=== PATIENT | male | born 1955 | race Hispanic/Latino ===

== ENCOUNTER 2017-12-06 10:52 | Observation (INO) | payer SELFPAY ==
[~2017-12-06] VITALS: Ht 170.2 cm; Wt 120.8 kg
--- OUTSIDE RECORDS SUMMARY | 2017-12-06 10:54 | XMS REPORT | Summary of Care ---
Author Author LEVI Arroyo, BANDAR Organization Unknown Address Unknown Phone Unavailable Care Team Providers Care Process Technician Name Role Phone ELIAS Arroyo, AKINPATRICKOYE Unavailable Unavailable LALY Arroyo, ABSALON Unavailable Unavailable OKWUOSA N.P., REINALDO Unavailable Unavailable NIMESH Arroyo, FADUMO Unavailable Unavailable KENDRA Arroyo, ALEJANDRO Unavailable Unavailable NED N.P., ALANA Unavailable Unavailable JUNE MARTINEZ, BAL Unavailable Unavailable LALY MCCRACKEN MD UT, ABSALON D Unavailable Unavailable OKWUOSA ANP UT, REINALDO Unavailable Unavailable Unavailable Unavailable Functional Status Name Dates Details Functional status health issues are not documented Status: Name Dates Details Cognitive status health issues are not documented Status: Problems Name Dates Details Abnormal renal finding (593.9, R39.9) Status: Active Acute pharyngitis (462, J02.9) Status: Active Acute tonsillitis (463, J03.90) Status: Active Acute bronchitis (466.0, J20.9) Status: Active Special Services Analysis Of Computerized Data Status: Active Obesity (278.00, E66.9) Status: Active Other hyperlipidemia (272.4, E78.49) Status: Active ROC (acute kidney injury) (584.9, N17.9) Status: Active CKD (chronic kidney disease) stage 3, GFR 30-59 ml/min (585.3, N18.3) Status: Active Uncontrolled hypertension (401.9, I10) Status: Active Uncontrolled type 2 diabetes mellitus with peripheral neuropathy (250.62, E11.42) Status: Active Neuropathy (355.9, G62.9) Status: Active Retinopathy, diabetic, bilateral (250.50, E11.319) Status: Active Medications Name Dates Details Lisinopril 20 MG Oral Tablet TAKE 1 TABLET DAILY. Quantity: 1 OKWUOSA N.P., REINALDO * Start : 19-Sep-2017 Active 30 Tablet Bottle Gabapentin 300 MG Oral Capsule TAKE 1 CAPSULE 3 TIMES DAILY. * Quantity: 180 Refills: 3 KENDRA Arroyo, ALEJANDRO * Start : 19-Sep-2017 Active NovoLOG Mix 70/30 FlexPen (70-30) 100 UNIT/ML Subcutaneous Suspension Pen-inject or INJECT 26 UNIT DAILY * Quantity: 1 Refills: 5 ALEJANDRO GARDNER M.D. * Start : 19-Sep-2017 Active 5 x 3 ML Pen Pen [place] 31G X 6 MM USE DIRECTED. * Quantity: 1 Refills: 5 ALEJANDRO GARDNER M.D. * Start : 19-Sep-2017 Active 100 Unit Box Accu-Chek Guide In Vitro Strip USE UP TO 4 STIPS DAILY DX CODE E11.65 * Quantity: 4 Refills: 0 OKWUOSA N.P., REINALDO * Start : 22-Sep-2017 Active 100 Strip Box Accu-Chek FastClix Lancets Use 3 Daily; E11.65 * Quantity: 3 Refills: 1 UMA RUFFIN M.D. * Start : 22-Sep-2017 Active 102 Unit Box Ltredbdgf-Iyktdnng-CZ 30-2-10 MG/5ML Oral Syrup TAKE 5 ML EVERY 4 TO 6 HOURS NEEDED. * Quantity: 240 Refills: 0 NED N.P., ALANA * Start : 21-Nov-2017 Active AmLODIPine Besylate 10 MG Oral Tablet TAKE 1 TABLET DAILY. * Quantity: 30 Refills: 2 FADUMO BEAVERS M.D. * Start : 21-Nov-2017 Active Azithromycin 250 MG Oral Tablet TAKE 2 TABLETS ON DAY 1 THEN TAKE 1 TABLET A DAY FOR 4 DAYS. * Quantity: 1 Refills: 0 NED N.P., ALANA * Start : 21-Nov-2017 Active 6 Tablet Box Metoprolol Tartrate 25 MG Oral Tablet TAKE 1 TABLET TWICE DAILY * Quantity: 60 Refills: 2 FADUMO BEAVERS M.D. * Start : 27-Nov-2017 Active Atorvastatin Calcium 20 MG Oral Tablet TAKE 1 TABLET AT BEDTIME. * Quantity: 30 Refills: 2 FADUMO BEAVERS M.D. * Start : 27-Nov-2017 Active Fish Oil 1000 MG Oral Capsule TAKE 1 CAPSULE TWICE DAILY * Quantity: 180 Refills: 2 FADUMO BEAVERS M.D. * Start : 27-Nov-2017 Active Allergies and Adverse Reactions Name Dates Details No Known Drug Allergies (Allergy) Status: Active Past Medical History Name Dates Details History of Diabetes (250.00, E11.9) Status: Resolved History of high cholesterol (V12.29, Z86.39) Status: Resolved History of hypertension (V12.59, Z86.79) Status: Resolved Procedures Procedure Dates Details [QL] MICROALBUMIN, RANDOM URINE (W/O CREATININE) Date: 13-Nov-2017 [QL] BASIC METABOLIC PANEL W/EGFR Date: 13-Nov-2017 [QLH] RENAL FUNCTION PANEL W/EGFR Date: 05-Dec-2017 Renal 01221 Date: 05-Dec-2017 [N] 2D Echo complete, with Doppler 78179 Date: 27-Nov-2017 History of No history of surgery Completed Immunization Name Dates Details Immunizations not documented Family History Name Dates Details Family history of high cholesterol (V18.19, Z83.42) Comments: Family History Status: Active Family history of stroke (V17.1, Z82.3) Comments: Family History Status: Active Family history of hypertension (V17.49, Z82.49) Comments: Family History Status: Active Name Dates Details Family history of malignant neoplasm of uterus (V16.49, Z80.49) Status: Active Name Dates Details Family history of Type 1 diabetes mellitus with other kidney complication (250.41, E10.29) Status: Active Social History Name Dates Details - Status: Name Dates Details Former smoker Vital Signs Date Test Result Details 64-Hju-12005:53 BP Systolic 127 mm[Hg] Status: BP Diastolic 74 mm[Hg] Status: Height 67 in Status: Weight 271 lb Status: Body Mass Index Calculated 42.45 kg/m2 Status: Body Surface Area Calculated 2.3 m2 Status: Heart Rate 79 /min Status: 27-Nov-20179:37 BP Systolic 189 mm[Hg] Status: Comments: Location: LUE; Position: Sitting BP Diastolic 84 mm[Hg] Status: Comments: Location: LUE; Position: Sitting Height 67 in Status: Weight 260.5 lb Status: Body Mass Index Calculated 40.8 kg/m2 Status: Body Surface Area Calculated 2.26 m2 Status: Heart Rate 90 /min Status: Comments: Location: L Brachial Artery; Temperature 97.9 f Status: Comments: Method: Tympanic Respiration Rate 14 /min Status: Comments: Quality: Normal O2 SAT 100 % Status: Comments: Source: RA :31 BP Systolic 186 mm[Hg] Status: Comments: Location: LUE; Position: Sitting BP Diastolic 104 mm[Hg] Status: Comments: Location: LUE; Position: Sitting Heart Rate 85 /min Status: Comments: Location: L Brachial Artery; :21 BP Systolic 176 mm[Hg] Status: Comments: Location: LUE; Position: Sitting BP Diastolic 92 mm[Hg] Status: Comments: Location: LUE; Position: Sitting Height 67 in Status: Weight 261.125 lb Status: Body Mass Index Calculated 40.9 kg/m2 Status: Body Surface Area Calculated 2.26 m2 Status: Heart Rate 93 /min Status: Comments: Location: L Brachial Artery; Temperature 97.3 f Status: Comments: Method: Tympanic Respiration Rate 15 /min Status: Comments: Quality: Normal O2 SAT 99 % Status: Comments: Source: RA Results Date Description Value Details :24 Glucose (Point of Care In Office) Glucose POC Lifescan 93 [id number]-[id number]:33 [[facility]] BASIC METABOLIC PANEL W/EGFR Glucose Lvl 82 mg/dl Range: 70-99 Comments: Adult reference range values reflect the clinical guidelinesof the [place] [employer]. Blood Urea Nitrogen 44 mg/dl (Above high threshold) Range: 7-22 Creatinine Lvl 1.70 mg/dl (Above high threshold) Range: 0.50-1.40 Sodium Level 141 {mEq/l} Range: 135-145 Potassium Level 5.7 {mEq/l} (Above high threshold) Range: 3.5-5.1 Chloride Level 115 {mEq/l} (Above high threshold) Range: 95-109 Carbon Dioxide 22 {mEq/l} (Below low threshold) Range: 24-32 AGAP 9.7 {mEq/l} (Below low threshold) Range: 10.0-20.0 Calcium Level Total 8.4 mg/dl (Below low threshold) Range: 8.5-10.5 eGFR 42 {ML/MIN/1.7} Comments: The eGFR is calculated using the CKD-EPI formula. In most young, healthyindividuals the eGFR will be >90 mL/min/1.73m2. The eGFR declines with age. AneGFR of 60-89 may be normal in some populations, particularly the elderly, forwhom the CKD-EPI formula has not been extensively validated. Use of the eGFR isnot recommended in the following populations:Individuals with unstable creatinine concentrations, including patients and those with serious co-morbid conditions.Patients with extremes in muscle mass or diet.The data above are obtained from the National Kidney Disease Education Program(NKDEP) which additionally recommends that when the eGFR is used in patientswith extremes of body mass index for purposes of drug dosing, the eGFR shouldbe multiplied by the estimated BMI. [id number]:33 [[facility]] MICROALBUMIN, RANDOM URINE (W/CREATININE) Urine Microalbumin 2970.0 mg/L U Creatinine 59.70 mg/dl Comments: No established reference ranges. Urine Microalbuming Creatinine Ratio 4974.9 {MCG/MG_CRE} (Above high threshold) Range: <=30.0 0-Dyx-889999:33 [O] Streptococcus Test Rapid (In Office) Group A Strep Screen NEGATIVE (Normal) 5-Ckn-394431:17 [[facility]] BASIC METABOLIC PANEL W/EGFR Glucose Lvl 234 mg/dl (Above high threshold) Range: 70-99 Comments: Adult reference range values reflect the clinical guidelinesof the [place] [employer]. Blood Urea Nitrogen 41 mg/dl (Above high threshold) Range: 7-22 Creatinine Lvl 2.00 mg/dl (Above high threshold) Range: 0.50-1.40 Sodium Level 139 {mEq/l} Range: 135-145 Potassium Level 5.1 {mEq/l} Range: 3.5-5.1 Chloride Level 112 {mEq/l} (Above high threshold) Range: 95-109 Carbon Dioxide 23 {mEq/l} (Below low threshold) Range: 24-32 AGAP 9.1 {mEq/l} (Below low threshold) Range: 10.0-20.0 Calcium Level Total 9.3 mg/dl Range: 8.5-10.5 eGFR 34 {ML/MIN/1.7} Comments: The eGFR is calculated using the CKD-EPI formula. In most young, healthyindividuals the eGFR will be >90 mL/min/1.73m2. The eGFR declines with age. AneGFR of 60-89 may be normal in some populations, particularly the elderly, forwhom the CKD-EPI formula has not been extensively validated. Use of the eGFR isnot recommended in the following populations:Individuals with unstable creatinine concentrations, including patients and those with serious co-morbid conditions.Patients with extremes in muscle mass or diet.The data above are obtained from the National Kidney Disease Education Program(NKDEP) which additionally recommends that when the eGFR is used in patientswith extremes of body mass index for purposes of drug dosing, the eGFR shouldbe multiplied by the estimated BMI. Plan of Care Name Dates Details Planned Observations [QLH] RENAL FUNCTION PANEL W/EGFR On: 01-Jan-2018 Intent Planned Goals not documented Planned Encounters Appointment; TONY MCKEON M.D. On: 08-Dec-2017 8:30 Appointment; UMA RUFFIN M.D. On: 26-Dec-2017 14:30 Appointment; LAKSHMI BURNS R.N. On: 04-Jan-2018 13:00 Appointment; FADUMO BEAVERS M.D. On: 05-Jan-2018 9:00 Appointment; BASHIR GRIFFIN M.D. On: 16-Jan-2018 10:30 Interventions Provided Labs/Procedures/Imaging* [place] 97138; To Be Done: 05 Dec 2017 Instructions* Patient Specific Education Given; Done: 05 Dec 2017 Discussion/Summary* 62 yr old man with PMH of poorly controlled HTN, poorly controlled DM, diabetic retinopathy (s/p LASER) and neuropathy, obesity, HLD, ex-smoker, seen for the management and evaluation of recent rapid decline in renal function * 1- CKD stage 3 likely due to diabetic nephropathy * rapid increase in Cr * continue to hold ACEI due to rapid decline * possibly worsened by atherosclerotic disease * suspect volume depletion as well due to uncontrolled DM and polyuria * drink at least 3-4 L of water daily * 2- Uncontrolled DM: * HgbA1c >15% * keep endocrinology follow up * 3- HTN: * acceptable control * keep log and bring in with every visit * continue Amlodipine 10 mg daily, metoprolol 25 mg bid * RTC 1 month with renal panel and kidney ultrasound * . Instructions Name Dates Details Instructions not documented Encounters Appointment; ALANA MARINO NP Encounter Diagnosis: Problem not documented On: 14-Sep-2017 14:20 Appointment; UMA RUFFIN M.D. Encounter Diagnosis: Problem not documented On: 19-Sep-2017 14:00 Appointment; LAKSHMI BURNS R.N. Encounter Diagnosis: Problem not documented On: 02-Nov-2017 13:00 Appointment; RIENALDO ABBASI NP Encounter Diagnosis: Problem not documented On: 13-Nov-2017 9:00 Appointment; ALANA MARINO NP Encounter Diagnosis: Problem not documented On: 21-Nov-2017 11:00 Appointment; FADUMO BEAVERS M.D. Encounter Diagnosis: Problem not documented On: 27-Nov-2017 9:20 Appointment; BASHIR GRIFFIN M.D. Encounter Diagnosis: Problem not documented On: 05-Dec-2017 9:00
[2017-12-06 11:31] LABS: BASOPHILS % 0.3 % (0.0-1.0); EOSINOPHILS # (AUTO) 0.1 (0.0-0.4); EOSINOPHILS % 0.9 % (0.0-6.0); HEMATOCRIT 34.4 % (38.2-49.6); HEMOGLOBIN 11.3 g/dL (14.0-18.0); LYMPHOCYTES # (AUTO) 1.6 (1.0-3.2); LYMPHOCYTES % 15.3 % (18.0-39.1); MEAN CORPUSCULAR HEMOGLOBIN 28.9 pg (28-32); MEAN CORPUSCULAR HGB CONC 32.8 g/dL (31-35); MONOCYTES # (AUTO) 0.8 (0.2-0.8); MONOCYTES % 7.3 % (4.4-11.3); NEUTROPHILS # (AUTO) 8.1 (2.1-6.9); NEUTROPHILS % 75.8 % (38.7-80.0); PLATELET COUNT 153 x10e3/uL (140-360); RED BLOOD COUNT 3.91 x10e6/uL (4.3-5.7); RED CELL DISTRIBUTION WIDTH 13.6 % (11.7-14.4)
[2017-12-06 11:36] LABS: INR 0.89; PROTHROMBIN TIME 12.9 seconds (11.9-14.5)
[2017-12-06 11:37] LABS: PARTIAL THROMBOPLASTIN TIME 31.5 seconds (23.8-35.5)
[2017-12-06] MEDS ORDERED: ASPIRIN 81 MG CHEW TAB PO ONE ×2 (12:00→14:15)
[2017-12-06 12:26] LABS: ALANINE AMINOTRANSFERASE 20 IU/L (0-55); ALBUMIN/GLOBULIN RATIO 1.1 (0.8-2.0); ALKALINE PHOSPHATASE 123 IU/L (40-150); ANION GAP 14.1 mmol/L (8-16); BLOOD UREA NITROGEN 43 mg/dL (7-26); BUN/CREATININE RATIO 20 (6-25); CALCIUM 8.3 mg/dL (8.4-10.2); CARBON DIOXIDE 16 mmol/L (22-29); CHLORIDE 111 mmol/L (98-107); CREATINE KINASE 232 IU/L (30-200); CREATININE, SERUM 2.11 mg/dL (0.72-1.25); EST GLOMERULAR FILTRATION RATE 32 ML/MIN (60-); GLUCOSE 201 mg/dL (74-118); POTASSIUM 5.1 mmol/L (3.5-5.1); SODIUM 136 mmol/L (136-145)
--- NOTE | 2017-12-06 12:26 | Diagnostic Imaging Report ---
Examination: Single AP view of the chest. COMPARISON: None. INDICATION: Dizziness, shortness of breath, chest pain DISCUSSION: Lung volumes are low with vascular crowding in the bases and perihilar regions. No focal airspace consolidation, pleural effusion, or pneumothorax. Tortuous thoracic aorta with otherwise normal cardiomediastinal contour when accounting for portable, AP technique. No acute osseous abnormality. IMPRESSION: Low lung volumes without acute cardiopulmonary abnormality. Signed by: Dr. Magan Camacho M.D. on 12/06/2017 12:23 PM
[2017-12-06] MEDS ORDERED: ATORVASTATIN CA20 MG PO (13:17)
[2017-12-06] MEDS ORDERED: GABAPENTIN300 MG PO (13:17)
[2017-12-06] MEDS ORDERED: METOPROLOL TART25 MG PO (13:17)
[2017-12-06] MEDS ORDERED: AMLODIPINE BESY10 MG PO (13:17)
[2017-12-06] MEDS ORDERED: HUMALOG MI100 UNIT/2 SC (13:17)
[2017-12-06] MEDS ORDERED: DEXTROSE 50% SYRINGE 50 ML IV PRN (14:15)
--- OUTSIDE RECORDS SUMMARY | 2017-12-06 14:20 | XMS REPORT ---
Author Author [facility] Address Unknown Phone Unavailable Care Team Providers Care Wire Walker Name Role Phone Nicci SHAH Unavailable Unavailable Problems This patient has no known problems. Allergies, Adverse Reactions, Alerts This patient has no known allergies or adverse reactions. Medications This patient has no known medications. Results Test Description Test Time Test Comments Text Results Atomic Results Result Comments CHEST SINGLE (PORTABLE) 2017-12-06 12:21:00 [place] [id number] Patient Name: SUKHJINDER BLOOM SR MR #: [id number] : 1955 Age/Sex: 62/M Req #: [id number] Adm Physician: Ordered by: RYAN ROY ACTIVITIES AIDE Report #: [id number] Location: ER Room/Bed: Procedure: [id number] DX/CHEST SINGLE (PORTABLE) Exam Date: 12/06/17 Exam Time: 1155 REPORT STATUS: Signed Examination: Single AP view of the chest. COMPARISON: None. INDICATION: Dizziness, shortness of breath, chest pain DISCUSSION: Lung volumes are low with vascular crowding in the bases and perihilar regions. No focal airspace consolidation, pleural effusion, or pneumothorax. Tortuous thoracic aorta with otherwise normal cardiomediastinal contour when accounting for portable, AP technique. No acute osseous abnormality. IMPRESSION: Low lung volumes without acute cardiopulmonary abnormality. Signed by: Dr. Amita Marvin M.D. on 12/06/2017 12:23 PM Dictated By: AMITA MARVIN MD 1223 Transcribed By: ROBLES on 12/06/173 COPY TO: RYAN ROY NP
[2017-12-06 14:55] VITALS: BP 157/91
[2017-12-06 15:08] VITALS: BP 165/78
[2017-12-06] MEDS: INSULIN REGULAR, HUMAN 100 UNIT/1 ML 3ML VIAL SQ SCH ×2 (16:30→20:42)
[2017-12-06 20:00] VITALS: BP 150/73
[2017-12-06 21:28] LABS: CREATINE KINASE MB 5.5 ng/mL (0-5.0)
[2017-12-07] VITALS (8 sets, daily range): BP systolic 120–180; BP diastolic 56–90
[2017-12-07 05:27] LABS: CREATINE KINASE MB 4.1 ng/mL (0-5.0)
[2017-12-07 05:42] LABS: CHOL/HDL RATIO 2.5 (3.9-4.7)
[2017-12-07] MEDS: INSULIN REGULAR, HUMAN 100 UNIT/1 ML 3ML VIAL SQ SCH ×4 (07:36→21:00)
[2017-12-07] MEDS ORDERED: [UNRECOGNIZED DRUG - OTHER] SC SCH (12:00)
[2017-12-07] MEDS ORDERED: INSULIN LISPRO SC SCH (12:00)
[2017-12-07] MEDS ORDERED: INSULIN NPL SC SCH (12:00)
[2017-12-07] MEDS: FUROSEMIDE INJ 10 MG/ML 4 ML VIAL IV SCH ×2 (12:16→19:11)
--- NOTE | 2017-12-07 12:41 | History and Physical ---
CHIEF COMPLAINT: Shortness of breath, chest pain. HISTORY OF PRESENT ILLNESS: This is a 62-year-old male, morbidly obese with known history of hypertension, seems to be very noncompliant, follows up with random PCPs, comes into the ED with complaints of shortness of breath ongoing for the last 2 days. Patient reports that he recently saw his doctor sometime last week somewhere in [place] and was given some Norvasc and was scheduled to have a stress test sometime next week by a simulation developer. Patient is a very poor historian. He denies any orthopnea but describes dyspnea on exertion. He does report having some lower extremity edema. Denies any abdominal pain, nausea or vomiting. Patient seen and evaluated at bedside on the medical floor, currently doing well with no other issues at this time. REVIEW OF SYSTEMS: PERTINENT POSITIVE: Shortness of breath on exertion. PERTINENT NEGATIVE: Denies any chest pain, palpitation, nausea, vomiting, diarrhea, dysuria, frequency, urgency, lightheadedness, dizziness, abdominal pain, headache, shortness of breath, cough, congestion, fever or any other complaints. REST OF 14-POINT REVIEW OF SYSTEMS: Have been reviewed with the patient and are negative. ALLERGIES: NO KNOWN DRUG ALLERGIES. HOME MEDICATIONS: Norvasc 10 mg daily, Lipitor 20 mg daily, gabapentin 300 mg p.o. t.i.d., metoprolol 25 mg p.o. b.i.d. He also takes insulin. PAST MEDICAL HISTORY: He has hypertension, hyperlipidemia, peripheral neuropathy, diabetes. SURGICAL HISTORY: None. FAMILY HISTORY: Hypertension, diabetes. SOCIAL HISTORY: No drugs, no alcohol. Does not smoke. Good social support. VITAL SIGNS: Temperature is 98.6, pulse 84, respiratory rate is 19, blood pressure 142/68, pulse ox 93% on 2 liters nasal cannula LABORATORY DATA: Lab findings show white count 10.6, hemoglobin 11.3, hematocrit is 34, platelets of 153. Coagulation: PT 12.9, INR 0.89, PTT 31.5. Chemistry: Sodium 136, potassium is 5.1, chloride 111, bicarb is 16, his anion gap is 14, BUN is 43, his creatinine is 2.1. His troponins are within normal range, the last one 0.031. CK is 125. LDL is 35. LFTs were normal. IMAGING STUDIES: Chest x-ray: Low lung volumes without acute cardiopulmonary abnormalities. MICROBIOLOGY: None. PHYSICAL EXAM: GENERAL: Not in acute distress, alert, oriented times 3, cooperative on examination. HEENT: Head normocephalic, atraumatic. Eyes: Pupils equal, round and reactive to light bilaterally. Extraocular movements intact bilaterally. NECK: Was supple with good range of motion throughout. No evidence of any erythema or exudates in the posterior pharynx. He has poor dentition. PULMONARY: Clear to auscultation bilaterally. No wheezing, no rales, no rhonchi, no crackles appreciated. CARDIOVASCULAR: Positive S1/S2. No murmurs, rubs or gallops appreciated. ABDOMEN: Soft, nondistended, nontender to palpation. Bowel sounds present. MUSCULOSKELETAL: Strength is 5/5 throughout. No evidence of any musculoskeletal deficit on examination. No weakness appreciated. NEUROLOGICAL: Cranial nerves 2-12 grossly intact. No evidence of any neurological deficit on exam. SKIN: Intact. Warm to touch. Good capillary refill. PSYCHIATRIC: Normal affect and mood. EXTREMITIES: He has 1 to 2+ pedal edema bilateral lower extremities. IMPRESSION: 1. Shortness of breath likely secondary to congestive heart failure with elevated Beta natriuretic peptide. 2. Type 2 diabetes. 3. Hypertension. 4. Chest pain. 5. Acute kidney injury on chronic kidney disease. ASSESSMENT AND PLAN: At this time will get cardiology consultation and likely get a 2-D echo. Trend troponins. Continue with cardioprotective meds. Get a.m. labs. Will continue with insulin and insulin sliding scale. We will get a hemoglobin A1c. Put him on Lasix 40 mg IV q.6 hours times 4 doses. Continue with same antihypertensive medications. He would truly benefit from a low-dose URIAH inhibitor once his renal function improves. Put on Lovenox for DVT prophylaxis. Try to wean him off of oxygen. Discussed the overall plan of care with nursing staff. Job#: [id number] MATTHIAS
--- NOTE | 2017-12-07 14:52 | Consultation ---
DATE OF CONSULTATION: December 07, 2017 CARDIOLOGY CONSULTATION REASON FOR CONSULTATION: Shortness of breath. HISTORY OF PRESENT ILLNESS: Patient is a 62-year-old man with previous history of diabetes, hypertension, hyperlipidemia and morbid obesity with chronic lower extremity edema, who presents to the hospital with complaints about feeling short of breath for the past 12 hours or so. He said he was just sitting down, not exerting himself, and he started feeling like he could not take a deep breath. Yesterday evening he proceeded to go to sleep as normal and slept through the night without any further shortness of breath, but when he woke up in the morning he continued to feel like he was dyspneic; so, he decided to present to the hospital. Denies any exertional chest pain or previous cardiovascular history. He said he has an appointment with a skin specialist next week, and he is supposed to get a stress test at that time. PAST MEDICAL HISTORY 1. Hypertension. 2. Diabetes. 3. Chronic kidney disease. 4. Hyperlipidemia. SOCIAL HISTORY: Patient does not smoke, drink or abuse drugs. FAMILY HISTORY: No family history of early CAD or sudden cardiac . REVIEW OF SYSTEMS: As noted in the history of present illness, otherwise negative. OUTPATIENT MEDICATIONS: Reviewed. PHYSICAL EXAMINATION VITAL SIGNS: Temperature 98.6, pulse 84, respiratory rate 19, blood pressure 120/58, satting 95% on 2 liters nasal cannula. GENERAL: Obese male, no acute distress, well developed, well nourished. CARDIOVASCULAR: Regular rate and rhythm. No murmurs, rubs or gallops. Palpable carotid pulses, palpable radial pulses, 3+ bilateral lower extremity edema with chronic venous stasis changes. LUNGS: Difficult to examine due to obesity. However, clear to auscultation bilaterally on a limited exam. ABDOMEN: Obese, soft, nontender. No masses. NEURO AND PSYCH: Alert and oriented to person, place and time. Normal affect. INPATIENT MEDICATIONS: Reviewed. LABORATORY DATA: Reviewed. Notable for a creatinine of 2.1 with a BNP of over 300. Cardiac enzymes are negative. TELEMETRY DATA: Reviewed. Shows normal sinus rhythm. ELECTROCARDIOGRAM: Shows normal sinus rhythm, no acute ST-T changes suggestive of ischemia. ASSESSMENT 1. Shortness of breath. 2. Congestive heart failure. 3. Lower extremity edema, chronic venous stasis changes. PLAN: Patient has been ruled out for acute myocardial infarction with serial troponins. Based on history and physical exam as well as laboratory findings, likely has congestive heart failure. Agree with IV diuretics. Echocardiogram is pending. Further recommendations based on echocardiogram findings. Will start patient on beta shukri and uptitrate as tolerated. Will defer starting URIAH or ARB given his poor renal function which may be acute or chronic. Thank you for this consult. Will continue to follow. Job#: [id number] EV
[2017-12-07] MEDS: GABAPENTIN 300 MG CAP PO SCH ×2 (15:05→21:15)
[2017-12-07] MEDS: METOPROLOL TARTRATE 25 MG TAB PO SCH (16:38)
[2017-12-07] MEDS ORDERED: INS LISP PRO/LISP HUMAN 75/25 100 UNITS/ML VIAL SC SCH (21:00)
[2017-12-07] MEDS: ATORVASTATIN 20 MG TAB PO SCH (21:15)
[2017-12-07] MEDS: INS LISP PRO/LISP HUMAN 75/25 100 UNITS/ML VIAL SC SCH (22:15)
[2017-12-08] VITALS (8 sets, daily range): BP systolic 105–173; BP diastolic 60–80
[2017-12-08 04:54] LABS: BASOPHILS % 0.5 % (0.0-1.0); EOSINOPHILS # (AUTO) 0.2 (0.0-0.4); EOSINOPHILS % 2.1 % (0.0-6.0); HEMATOCRIT 32.2 % (38.2-49.6); HEMOGLOBIN 10.5 g/dL (14.0-18.0); LYMPHOCYTES # (AUTO) 2.2 (1.0-3.2); LYMPHOCYTES % 28.4 % (18.0-39.1); MEAN CORPUSCULAR HEMOGLOBIN 28.6 pg (28-32); MEAN CORPUSCULAR HGB CONC 32.6 g/dL (31-35); MEAN CORPUSCULAR VOLUME 87.7 fL (81-99); MONOCYTES % 13.1 % (4.4-11.3); NEUTROPHILS # (AUTO) 4.3 (2.1-6.9); NEUTROPHILS % 55.6 % (38.7-80.0); PLATELET COUNT 159 x10e3/uL (140-360); RED BLOOD COUNT 3.67 x10e6/uL (4.3-5.7); RED CELL DISTRIBUTION WIDTH 13.4 % (11.7-14.4)
[2017-12-08 05:14] LABS: ANION GAP 15.4 mmol/L (8-16); CALCIUM 8.7 mg/dL (8.4-10.2); CREATININE, SERUM 1.77 mg/dL (0.72-1.25); POTASSIUM 4.4 mmol/L (3.5-5.1)
[2017-12-08] MEDS: FUROSEMIDE INJ 10 MG/ML 4 ML VIAL IV SCH ×3 (05:21→17:30)
[2017-12-08] MEDS: INSULIN REGULAR, HUMAN 100 UNIT/1 ML 3ML VIAL SQ SCH ×4 (07:30→20:22)
[2017-12-08] MEDS: INS LISP PRO/LISP HUMAN 75/25 100 UNITS/ML VIAL SC SCH ×2 (08:39→20:45)
[2017-12-08] MEDS ORDERED: ASPIRIN 325 MG TAB PO SCH (09:00)
[2017-12-08] MEDS: ASPIRIN 81 MG ENTERIC COATED PO SCH (09:15)
[2017-12-08] MEDS: METOPROLOL TARTRATE 25 MG TAB PO SCH ×2 (09:15→16:30)
[2017-12-08] MEDS: AMLODIPINE BESYLATE 10 MG TAB PO SCH (09:15)
[2017-12-08] MEDS: GABAPENTIN 300 MG CAP PO SCH ×3 (09:15→20:22)
[2017-12-08] MEDS ORDERED: GUAIFENESIN/CODEINE 10 ML CUP PO PRN (10:30)
[2017-12-08] MEDS ORDERED: BENZONATATE 100 MG CAP PO PRN (10:30)
--- NOTE | 2017-12-08 16:46 | Progress Note ---
DATE: December 08, 2017 SUBJECTIVE: Patient is currently doing well with no other complaints. He is breathing much better now. He does have a cough on examination and congestion. OBJECTIVE VITAL SIGNS: Temperature is 96.3, pulse 77, respiratory rate is 18, blood pressure 173/80, pulse ox 96% on nasal cannula. LAB FINDINGS: Show white count is 7.7, hemoglobin is 10.5, hematocrit is 32, platelets of 159. CHEMISTRY: Sodium 139, potassium 4.4, chloride 109, bicarb 19, anion gap of 16, BUN is 33, creatinine 1.7. Troponins are negative x3. IMAGING STUDIES: None. PHYSICAL EXAMINATION GENERAL: Not in acute distress. Alert, oriented x3, cooperative on examination. HEENT: Head: Normocephalic, atraumatic. Eyes: Pupils equally round and reactive to light bilaterally. Extraocular movements intact bilaterally. Neck was supple with good range of motion. Throat: No evidence of any erythema or exudates in the posterior pharynx. Has poor dentition. PULMONARY: Clear to auscultation bilaterally. No wheezing, no rales, no rhonchi, no crackles appreciated. CARDIOVASCULAR: Positive S1/S2. No murmurs, rubs or gallops appreciated. ABDOMEN: Soft, nondistended, nontender to palpation. Bowel sounds present. MUSCULOSKELETAL: Strength is 5/5 throughout. No evidence of any musculoskeletal deficit on examination. No weakness appreciated. NEUROLOGICAL: Cranial nerves 2-12 grossly intact. No evidence of any neurological deficit on exam. SKIN: Intact. Warm to touch. Good capillary refill. PSYCHIATRIC: Normal affect and mood. EXTREMITIES: No edema. Good range of motion throughout. IMPRESSION 1. Shortness of breath likely secondary to congestive heart failure with elevated Beta natriuretic peptide. Pending 2-D echo. 2. Type 2 diabetes. 3. Hypertension. 4. Chest pain. 5. Acute kidney injury secondary to chronic kidney disease stage 3. PLAN: At this time pending banquet houseperson's plan and recommendations. A 2-D echo is still pending. Troponins were negative. Continue with IV diuretics 40 mg IV q.6 h. x4 doses. Continue with antihypertensive medications. He is on Lovenox for DVT prophylaxis. Once Cardiology clears, the patient will be discharged home. Job#: [id number] EV
[2017-12-08] MEDS: ATORVASTATIN 20 MG TAB PO SCH (20:22)
[2017-12-09 00:30] VITALS: BP 128/59
[2017-12-09] MEDS: FUROSEMIDE INJ 10 MG/ML 4 ML VIAL IV SCH ×3 (01:00→12:38)
[2017-12-09 03:45] VITALS: BP 136/72
[2017-12-09 05:07] LABS: BASOPHILS % 0.4 % (0.0-1.0); EOSINOPHILS # (AUTO) 0.3 (0.0-0.4); EOSINOPHILS % 3.2 % (0.0-6.0); HEMATOCRIT 32.3 % (38.2-49.6); HEMOGLOBIN 10.5 g/dL (14.0-18.0); LYMPHOCYTES # (AUTO) 2.4 (1.0-3.2); LYMPHOCYTES % 29.2 % (18.0-39.1); MEAN CORPUSCULAR HEMOGLOBIN 29.1 pg (28-32); MEAN CORPUSCULAR HGB CONC 32.5 g/dL (31-35); MEAN CORPUSCULAR VOLUME 89.5 fL (81-99); MONOCYTES # (AUTO) 0.9 (0.2-0.8); MONOCYTES % 10.5 % (4.4-11.3); NEUTROPHILS # (AUTO) 4.6 (2.1-6.9); NEUTROPHILS % 56.2 % (38.7-80.0); PLATELET COUNT 171 x10e3/uL (140-360); RED BLOOD COUNT 3.61 x10e6/uL (4.3-5.7); RED CELL DISTRIBUTION WIDTH 13.2 % (11.7-14.4)
[2017-12-09 05:18] LABS: ANION GAP 14.9 mmol/L (8-16); CALCIUM 8.9 mg/dL (8.4-10.2); CREATININE, SERUM 2.23 mg/dL (0.72-1.25); POTASSIUM 4.9 mmol/L (3.5-5.1)
[2017-12-09 08:14] VITALS: BP 109/82
[2017-12-09] MEDS: INS LISP PRO/LISP HUMAN 75/25 100 UNITS/ML VIAL SC SCH (08:25)
[2017-12-09] MEDS: INSULIN REGULAR, HUMAN 100 UNIT/1 ML 3ML VIAL SQ SCH ×2 (08:26→11:30)
[2017-12-09] MEDS: ASPIRIN 81 MG ENTERIC COATED PO SCH (08:27)
[2017-12-09] MEDS: AMLODIPINE BESYLATE 10 MG TAB PO SCH (08:27)
[2017-12-09] MEDS: GABAPENTIN 300 MG CAP PO SCH (08:27)
[2017-12-09] MEDS: METOPROLOL TARTRATE 25 MG TAB PO SCH (08:28)
[2017-12-09 12:09] VITALS: BP 145/70
--- NOTE | 2017-12-10 07:28 | Discharge Summary ---
FINAL DISCHARGE DIAGNOSES 1. Atypical chest pain. 2. Congestive heart failure with mild systolic and diastolic dysfunction. 3. Type 2 diabetes. 4. Hypertension. 5. Acute kidney injury on chronic kidney disease stage III. CONSULTANTS: Cardiology. VITAL SIGNS: Temperature is 96.2, pulse 72, respiratory rate is 18, blood pressure is 145/74, 96% on room air. LAB FINDINGS: Show white count is 8.1, hemoglobin 10.5, hematocrit 32, platelets are 171,000. Coagulation; PT 12, INR 0.89, and PTT 31. Chemistry; sodium 130, potassium 4.9, chloride 107, bicarb 21, anion gap of 14, BUN is 41, creatinine is 2.2. Calcium 8.9, magnesium was 2. LFTs were normal. LDL was 35 and BNP 306. Troponins were negative times 3. Micro, none. IMAGING STUDIES: Chest x-ray showed evidence of some pulmonary edema. HOSPITAL COURSE: This is a 62-year-old male, morbidly obese with known history of type 2 diabetes and hypertension as well as CKD, comes into the ED with complaints of chest pain. Patient was admitted and cardiology was consulted. Cardiac enzymes were negative. A 2D echo showed an EF of 45% to 50% with evidence of systolic and diastolic dysfunction. While here, patient had some edema. He was given some IV diuretics with much improvement. His shortness of breath improved tremendously while here in the hospital. Cardiology cleared the patient to discharge home. He will be discharged on oral diuretics as well as continue same cardioprotective meds at home as well as his home medications including aspirin 81 mg daily. On discharge, patient was doing well with no other issues. On the day of discharge, vital signs were stable, laboratories were stable. Patient was seen, evaluated and examined thoroughly on the day of discharge with no other complaints. 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 MEDICATIONS: See medicine reconciliation form including Lasix 40 mg 1 tab p.o. daily and aspirin 81 mg daily. DISPOSITION: Home. DISCHARGE CONDITION: Stable. DIET: Heart healthy. In the event of any worsening symptoms, the patient was advised to come back to the Emergency Department for further evaluation. This discharge summary took greater than 35 minutes. Job#: [id number] SHAYE
== END 2017-12-09 14:48 | disposition home or self-care (01) ==
LOC: ER 10:52 → ERHOLD 14:08 → IMCU 14:32
PROVIDERS: ADMIT Internal Medicine; ATTEND Internal Medicine
DX: I13.0 Hypertensive heart and chronic kidney disease with heart failure and stage 1 through stage 4 chronic kidney disease, or unspecified chronic kidney disease (principal); I50.43 Acute on chronic combined systolic (congestive) and diastolic (congestive) heart failure; E66.01 Morbid (severe) obesity due to excess calories; N18.3 Chronic kidney disease, stage 3 (moderate); E78.5 Hyperlipidemia, unspecified; E11.42 Type 2 diabetes mellitus with diabetic polyneuropathy; N17.9 Acute kidney failure, unspecified; I50.9 Heart failure, unspecified; E11.22 Type 2 diabetes mellitus with diabetic chronic kidney disease; I87.8 Other specified disorders of veins; R07.89 Other chest pain; Z91.19 Patient's noncompliance with other medical treatment and regimen
CPT/HCPCS: 36415 ×4; 71045; 80048 ×2; 80053; 80061; 82550 ×2; 82553 ×2; 82948 ×4; 83036; 83735; 83880; 84484 ×2; 85025 ×3; 85610; 85730; 93005; 93306; 99284; G0378 ×4; J1815 ×2; J1940 ×3

== ENCOUNTER 2017-12-16 10:40 | Emergency (ER) | payer SELFPAY ==
[~2017-12-16] VITALS: Ht 170.2 cm; Wt 122.5 kg
[~2017-12-16 10:40] MED LIST: AMLODIPINE BESY10 MG PO; ATORVASTATIN CA20 MG PO; GABAPENTIN300 MG PO; HUMALOG MI100 UNIT/2 SC; METOPROLOL TART25 MG PO
--- OUTSIDE RECORDS SUMMARY | 2017-12-16 10:42 | XMS REPORT | Summary of Care ---
Author Author ELIAS Arroyo, BASHIR Organization Unknown Address [facility] Phone Unavailable Care Team Providers Care Astronomy Professor Name Role Phone ELIAS Arroyo, BASHIR Unavailable Unavailable LALY Arroyo, ABSALON Unavailable Unavailable [facility] N.P., REINALDO Unavailable Unavailable NIMESH Arroyo, FADUMO Unavailable Unavailable KENDRA Arroyo, ALEJANDRO Unavailable Unavailable NED N.P., ALANA Unavailable Unavailable JUNE MARTINEZ, SAMIR Unavailable Unavailable LALY MCCRACKEN MD [facility], [facility] [...] Active Other hyperlipidemia (272.4, E78.49) Status: Active Neuropathy (355.9, G62.9) Status: Active Retinopathy, diabetic, bilateral (250.50, E11.319) Status: Active ROC (acute kidney injury) (584.9, N17.9) Status: Active CKD (chronic kidney disease) stage 3, GFR 30-59 ml/min (585.3, N18.3) Status: Active Uncontrolled hypertension (401.9, I10) Status: Active Uncontrolled type 2 diabetes mellitus with peripheral neuropathy (250.62, E11.42) Status: Active Medications Name Dates Details Lisinopril [...] UNIT DAILY * Quantity: 1 Refills: 5 KENDRA Arroyo, ALEJANDRO * Start : 19-Sep-2017 Active 5 x 3 ML Pen Pen [place] 31G X 6 MM USE DIRECTED. * Quantity: 1 Refills: 5 KENDRA Arroyo, ALEJANDRO * Start : 19-Sep-2017 Active 100 Unit Box Accu-Chek Guide In Vitro Strip USE UP TO 4 STIPS DAILY DX CODE E11.65 * Quantity: 4 Refills: 0 [facility] N.P., REINALDO * Start : 22-Sep-2017 Active 100 Strip Box Accu-Chek FastClix Lancets Use 3 Daily; E11.65 * Quantity: 3 Refills: 1 LALY Arroyo ABSALON * Start : 22-Sep-2017 Active 102 Unit Box Xhebbovka-Fnpblrsj-OI 30-2-10 MG/5ML Oral Syrup TAKE 5 ML [...] Z86.79) Status: Resolved Procedures Procedure Dates Details [QLH] RENAL FUNCTION PANEL W/EGFR Date: 05-Dec-2017 Renal [id number] Date: 05-Dec-2017 [N] 2D Echo complete, with Doppler 90416 Date: 27-Nov-2017 History of No history of [...] smoker Vital Signs Date Test Result Details :53 BP Systolic 127 mm[Hg] Status: BP Diastolic [...] SAT 100 % Status: Comments: Source: RA [id number] BP Systolic 186 mm[Hg] Status: Comments: Location: LUE; Position: Sitting BP Diastolic 104 mm[Hg] Status: Comments: Location: LUE; Position: Sitting Heart Rate 85 /min Status: Comments: Location: L Brachial Artery; [id number] BP Systolic 176 mm[Hg] Status: Comments: Location: [...] Care In Office) Glucose POC Lifescan 93 [id number] [[facility]] BASIC METABOLIC PANEL W/EGFR Glucose Lvl 82 mg/dl Range: 70-99 Comments: Adult reference range values reflect the clinical guidelinesof the [place] [employer]. Blood Urea Nitrogen 44 mg/dl [...] eGFR shouldbe multiplied by the estimated BMI. 95-Gyw-233525:33 [[facility]] MICROALBUMIN, RANDOM URINE (W/CREATININE) Urine Microalbumin 2970.0 mg/L U Creatinine 59.70 mg/dl Comments: No established reference ranges. Urine Microalbuming Creatinine Ratio 4974.9 {MCG/MG_CRE} (Above high threshold) Range: <=30.0 :33 [O] Streptococcus Test Rapid (In Office) Group A Strep Screen NEGATIVE (Normal) [id number] [[facility]] BASIC METABOLIC PANEL W/EGFR Glucose Lvl 234 mg/dl (Above high threshold) Range: 70-99 Comments: Adult reference range values reflect the clinical guidelinesof the [place] [employer]. Blood Urea Nitrogen 41 mg/dl [...] Planned Goals not documented Planned Encounters Appointment; FADUMO BEAVERS M.D. On: 18-Dec-2017 10:00 Appointment; UMA RUFFIN M.D. On: 26-Dec-2017 14:30 Appointment; LAKSHMI BURNS R.N. On: 04-Jan-2018 13:00 Appointment; BASHIR GRIFFIN M.D. On: 16-Jan-2018 10:30 Interventions Provided Labs/Procedures/Imaging* Renal [id number]; To Be Done: 05 Dec 2017 Instructions* [...] Problem not documented On: 02-Nov-2017 13:00 Appointment; REINALDO ABBASI NP Encounter Diagnosis: Problem not documented On: 13-Nov-2017 9:00 Appointment; ALANA MARINO NP Encounter Diagnosis: Problem not documented On: 21-Nov-2017 11:00 Appointment; FADUMO BEAVERS M.D. Encounter Diagnosis: Problem not documented On: 27-Nov-2017 9:20 Appointment; BASHIR GRIFFIN M.D. Encounter Diagnosis: Problem not documented On: 05-Dec-2017 9:00
[2017-12-16 14:47] LABS: BASOPHILS % 0.4 % (0.0-1.0); EOSINOPHILS # (AUTO) 0.2 (0.0-0.4); EOSINOPHILS % 2.7 % (0.0-6.0); HEMATOCRIT 35.1 % (38.2-49.6); HEMOGLOBIN 11.7 g/dL (14.0-18.0); LYMPHOCYTES # (AUTO) 2.2 (1.0-3.2); LYMPHOCYTES % 30.2 % (18.0-39.1); MEAN CORPUSCULAR HGB CONC 33.3 g/dL (31-35); MEAN CORPUSCULAR VOLUME 87.1 fL (81-99); MONOCYTES # (AUTO) 0.6 (0.2-0.8); MONOCYTES % 7.9 % (4.4-11.3); NEUTROPHILS # (AUTO) 4.3 (2.1-6.9); NEUTROPHILS % 58.5 % (38.7-80.0); PLATELET COUNT 244 x10e3/uL (140-360); RED BLOOD COUNT 4.03 x10e6/uL (4.3-5.7)
[2017-12-16 15:09] LABS: ANION GAP 14.5 mmol/L (8-16); BLOOD UREA NITROGEN 31 mg/dL (7-26); BUN/CREATININE RATIO 17 (6-25); CALCIUM 9.4 mg/dL (8.4-10.2); CARBON DIOXIDE 26 mmol/L (22-29); CHLORIDE 103 mmol/L (98-107); CREATINE KINASE 251 IU/L (30-200); CREATININE, SERUM 1.86 mg/dL (0.72-1.25); EST GLOMERULAR FILTRATION RATE 37 ML/MIN (60-); GLUCOSE 223 mg/dL (74-118); POTASSIUM 4.5 mmol/L (3.5-5.1); SODIUM 139 mmol/L (136-145)
[2017-12-16 16:17] VITALS: BP 156/89
== END 2017-12-16 16:19 | disposition home or self-care (01) ==
LOC: ER 10:40
DX: I10 Essential (primary) hypertension (principal); E11.65 Type 2 diabetes mellitus with hyperglycemia
CPT/HCPCS: 36415; 80048; 82550; 82553; 84484; 85025; 93005; 99283